=== PATIENT | male | born 1985 | race Caucasian/White ===

== ENCOUNTER 2020-07-26 05:14 | Observation (INO) ==
[2020-07-26] MEDS ORDERED: DECADRON INJ ONE ×2 (05:15→10:34)
[2020-07-26] MEDS ORDERED: DIPRIVAN VIAL ONE (05:15)
[2020-07-26] MEDS ORDERED: TORADOL 30 MG VIAL ONE ×4 (05:15→16:32)
[2020-07-26] MEDS ORDERED: ZOFRAN INJ 4 MG VIAL ONE ×2 (05:15→05:59)
[2020-07-26] MEDS ORDERED: XYLOCAINE 1 % (PLAIN) ONE (05:15)
[2020-07-26] MEDS ORDERED: ULTANE GAS IN ONE (05:15)
[2020-07-26] MEDS ORDERED: VERSED ONE (05:15)
[2020-07-26 05:36] VITALS: BMI 27.1
[2020-07-26] MEDS ORDERED: PEPCID 20 MG IV PREMIX* 20 MG/50 ML BAG IV ONE ×2 (05:44→05:59)
[2020-07-26] MEDS ORDERED: PROTONIX INJ 40 MG VIAL IVP ONE (05:44)
[2020-07-26] MEDS ORDERED: NS 1000 ML 1,000 ML ONE ×2 (05:46→08:14)
[2020-07-26] MEDS ORDERED: NS 1000 ML 1,000 ML IV ONE (05:46)
[2020-07-26] MEDS ORDERED: ZOFRAN INJ 4 MG VIAL IVP ONE (05:47)
--- NOTE | 2020-07-26 05:50 | DR.CP ---
HPI Time Seen Time Seen by Provider: 07/26/20 05:37 PCP Primary Care Physician: Manoj HPI Comment HPI Comment: PATIENT IS 35YR OLD MALE IN ER WITH SEVERE CHEST PAIN, SHARP, 10/10 RADIATING TO THE BACK. WAS IN ER FEW DAYS AGO WITH SIMILAR SYMPTOMS. HAVE GOTTEN WORSE. MEDICATION AT HOME IS NOT HELPING. NO FEVER. DENIES DIARRHEA OR DYSURIA. Complaint Chief Complaint Doctor Comments: CHEST PAIN, MID STERNAL RADIATING TO THE BACK. Chief Complaint:: "I came in with CP a few days ago and got diagnosed with gallstones. The pain has just got worse." COVID-19 Coronavirus risk:travel/contact w/high risk person: No Has patient experienced Coronavirus symptoms: No Reviewed Nurses Notes Review: Yes Source History Provided: Patient and Family Member Mode of Arrival Mode of Arrival: Ambulatory Timing Onset of Chief Complaint: 07/16/20 Came on: Suddenly Duration Duration: Constant Duration: Days Location Location of Chest Pain: Chest (MID CHEST PAIN.) Chest Pain Radiation Location: Back Context Onset: At rest Cardiac Risk Factors: HTN PE Risk Factors: None History of: None Prehospital Care: None Quality Quality: Sharp Severity Severity: Moderate Modifying Factors Worsens: Exertion Impoves: Rest Associated Signs and Symptoms Associated Signs and Symptoms: Diaphoresis and Abdominal Pain PMH PMH Past Medical History: Yes Past Medical History: Hypertension and Kidney Stones Past Medical History Comment: ulcers Past Surgical History: Yes Surgical History: Lithotripsy Past Surgical History Comment: endoscopy, lithotripsy x3 Family History History of Family Medical Conditions: Yes Family Medical History: Hypertension Social History Type of Tobacco Use: Cigarettes Do you use any recreational Drugs:: No Infectious screening Have you traveled outside the country in the last 6 months?: No Isolation: Standard ROS Review of Systems Constitutional: No Symptoms Reported and See HPI; negative Fever, Weakness and Fatigue Eyes: No Symptoms Reported and See HPI ENTM: No Symptoms Reported and See HPI; negative Nose Discharge and Nose Congestion Respiratoy: No Symptoms Reported and See HPI; negative Moist Cough, Short of Breath and Wheezing Cardiovascular: No Symptoms Reported, See HPI and Chest Pain; negative Edema Gastrointestinal/Abdominal: No Symptoms Reported, See HPI and Abdominal Pain; negative Constipation and Diarrhea Genitourinary: No Symptoms Reported and See HPI; negative Dysuria, Frequency and Hematuria Neurological: No Symptoms Reported and See HPI; negative Weakness and Dizziness Musculoskeletal: No Symptoms Reported and See HPI; negative Back Pain Integumentary: No Symptoms Reported and See HPI; negative Change in Color, Rash and Juandice Hematologic/Lymphatic: No Symptoms Reported and See HPI; negative Easy Bruising and Swollen Glands Endocrine: No Symptoms Reported and See HPI; negative Increased Thirst and Increased Urine Psychiatric: No Symptoms Reported and See HPI All Other Systems: Reviewed and Negative PE Vitals Vitals: Temperature 97.8 F Pulse Rate 57 Respiratory Rate 17 Blood Pressure [Right Arm] 131/70 Blood Pressure 128/66 O2 Sat by Pulse Oximetry 97 General Limitations: No Limitations General Appearance: Alert and In No Apparent Distress Head Head Exam: Normal Inspection Eyes Eye exam: Normal Appearance and PERRL; negative Scleral Icterus and Conjunctival Injection ENT ENT Exam: Normal Exam, Normal Oropharynx, Normal External Ear Exam and TM's Normal Bilaterally Chest Chest Inspection: Normal Inspection and Symmetric Chest Wall Rise; negative Tenderness Respiratory Respiratory Exam: Normal Lung Sounds Bilat; negative Accessory Muscle Use, Chest Wall Tenderness and Respiratory Distress Respiratory Exam: Bilateral: Clear to Auscultation Cardiovascular Cardiovascular Exam: Regular Rate, Normal Rhythm and Normal Heart Sounds; neg ative Systolic Murmur and Diastolic Murmur Pulse: Normal Edema: Normal Abdominal Exam Abdominal Exam: Normal Inspection, Normal Bowel Sounds and Soft; negative Tenderness Extremities Extremities Exam: Normal Inspection and Normal Capillary Refill; negative Tenderness and Edema Back Back Exam: Normal Inspection; negative (R) CVA Tenderness and (L) CVA Tenderness Neurologic Neurological Exam: Alert, Oriented X3 and CN II-XII Intact; negative Motor Sensory Deficit Psychiatric Psychiatric Exam: Normal Affect and Normal Mood Skin Skin Exam: Warm, Dry, Intact and Normal Color MDM Additional Information Additional Information Obtained From: Old Records and Family Differential Diagnosis Differential Diagnosis: Angina, Chest Wall Pain, Cholelithasis, CHF, Costochondritis, Esophageal Reflux/Spasm, Gastritis, Myocardial Infarction, Pericarditis, Pleuritis, Pancreatitis, Pneumonia and Pneumothorax COURSE Treatment Treatment: SEE ORDERS. Consultation Consultation Comments: CONSULT DR. FROST FOR POSSIBLE SURGERY. Education/Counseling Education/Counseling: Patient and Family Educated On: Diagnosis ROR Labs Reviewed Laboratory Results Reviewed?: Yes Result Diagrams: 07/26/20 06:05 07/26/20 06:05 Laboratory: WBC 8.9 X10^3/uL (3.6-10.0) 07/26/20 06:05 RBC 4.46 X10^6/uL (4.7-6.0) L 07/26/20 06:05 Hgb 13.9 g/dL (13.5-18.0) 07/26/20 06:05 Hct 39.5 % (42.0-54.0) L 07/26/20 06:05 MCV 88.6 fL (80.0-100.0) 07/26/20 06:05 MCH 31.1 pg (27.0-34.0) 07/26/20 06:05 MCHC 35.1 g/dL (33.0-35.0) H 07/26/20 06:05 RDW 12.4 % (11.6-16.5) 07/26/20 06:05 Plt Count 163 X10^3/uL (150.0-450.0) 07/26/20 06:05 MPV 8.3 fL (7.4-11.0) 07/26/20 06:05 Neut % (Auto) 66.9 % (42.0-75.0) 07/26/20 06:05 Lymph % (Auto) 21.7 % (21.0-51.0) 07/26/20 06:05 Ness % (Auto) 6.6 % (0.0-13.0) 07/26/20 06:05 Eos % (Auto) 3.9 % (0.9-2.9) H 07/26/20 06:05 Baso % (Auto) 0.9 % (0.2-1.0) 07/26/20 06:05 Neut # (Auto) 5.9 x10^3/uL (2.2-4.8) H 07/26/20 06:05 Lymph # (Auto) 1.9 X10^3/uL (1.3-2.9) 07/26/20 06:05 Ness # (Auto) 0.6 x10^3/uL (0.3-0.8) 07/26/20 06:05 Eos # (Auto) 0.3 x10^3/uL (0.0-0.2) H 07/26/20 06:05 Baso # (Auto) 0.1 X10^3/uL (0.0-0.1) 07/26/20 06:05 Absolute Nucleated RBC 0.0 /100WBC 07/26/20 06:05 Sodium 141 mmol/L (136-145) 07/26/20 06:05 Corrected Sodium TNP 07/26/20 06:05 Potassium 4.0 mmol/L (3.5-5.1) 07/26/20 06:05 Chloride 105 mmol/L (98-107) 07/26/20 06:05 Carbon Dioxide 27.2 mmol/L (21-32) 07/26/20 06:05 BUN 20 mg/dL (7-18) H 07/26/20 06:05 Creatinine 1.06 mg/dL (0.70-1.30) 07/26/20 06:05 Est GFR (MDRD) Af Amer > 60 (>60) 07/26/20 06:05 Est GFR (MDRD) Non-Af > 60 (>60) 07/26/20 06:05 Glucose 102 mg/dL (65-99) H 07/26/20 06:05 Calcium 8.7 mg/dL (8.5-10.1) 07/26/20 06:05 Corrected Calcium TNP 07/26/20 06:05 Total Bilirubin 0.30 mg/dL (0.2-1.0) 07/26/20 06:05 AST 13 Units/L (15-37) L 07/26/20 06:05 ALT 18 Units/L (12-78) 07/26/20 06:05 Alkaline Phosphatase 66 Units/L (46-116) 07/26/20 06:05 Creatine Kinase 63 Units/L (39-308) 07/26/20 06:05 CK-MB (CK-2) < 1.0 ng/mL (0-4.0) 07/26/20 06:05 CK/CKMB % Calc 1.6 % (<4) 07/26/20 06:05 Troponin I < 0.02 ng/mL (0-1.5) 07/26/20 06:05 Total Protein 6.6 g/dL (6.4-8.2) 07/26/20 06:05 Albumin 3.6 g/dL (3.4-5.0) 07/26/20 06:05 Globulin 3.0 g/dL (2.5-4.5) 07/26/20 06:05 Albumin/Globulin Ratio 1.2 Ratio (1.1-2.1) 07/26/20 06:05 Amylase 42 Units/L (25-115) 07/26/20 06:05 Lipase 108 Units/L (73-393) 07/26/20 06:05 Specimen Type Clean catch urine 07/26/20 06:46 Urine Color Yellow (YELLOW) 07/26/20 06:46 Urine Appearance Clear (CLEAR) 07/26/20 06:46 Urine pH 6.0 (5.0 - 8.0) 07/26/20 06:46 Ur Specific [place] 1.025 (1.000-1.030) 07/26/20 06:46 Urine Protein Negative (NEGATIVE) 07/26/20 06:46 Urine Glucose (UA) Negative (NEGATIVE) 07/26/20 06:46 Urine Ketones Negative (NEGATIVE) 07/26/20 06:46 Urine Occult Blood 1+ (NEGATIVE) 07/26/20 06:46 Urine Nitrite Negative (NEGATIVE) 07/26/20 06:46 Urine Bilirubin Negative (NEGATIVE) 07/26/20 06:46 Urine Urobilinogen Normal (NORMAL) 07/26/20 06:46 Ur Leukocyte Esterase Negative (NEGATIVE) 07/26/20 06:46 Urine RBC 3-5 /HPF (0-3) A 07/26/20 06:46 Urine WBC 0-2 /HPF (0-5) 07/26/20 06:46 Ur Squamous Epith Cells Rare /HPF (NEGATIVE) 07/26/20 06:46 Urine Bacteria Negative /HPF (NEGATIVE) 07/26/20 06:46 Urine Mucus Few /HPF (NEGATIVE) 07/26/20 06:46 Ur Culture Indicated? No/not indicated 07/26/20 06:46 SARS CoV-2 RNA Rapid MAREK Negative (NEGATIVE) 07/26/20 08:14 Opioid Opioid Risk Tool Age (Ayo box if 16-45): Yes History of Preadolescent Sexual Abuse: No Total: 1 Total Score Risk Category: Low Risk Copyright: Rico ROBERSON predicting aberrant behaviors Diagnosis Discharge Problem: Gall stone Qualifiers: Cholecystitis presence: without cholecystitis Biliary obstruction: without biliary obstruction Qualified Code(s): K80.20 - Calculus of gallbladder without cholecystitis without obstruction Abdominal pain Qualifiers: Abdominal location: upper abdomen, unspecified Qualified Code(s): R10.10 - Upper abdominal pain, unspecified Instructions Forms: Precautions for COVID19 Patient Portal Social Distancing
[2020-07-26] MEDS ORDERED: PROTONIX INJ 40 MG VIAL ONE (05:59)
[2020-07-26] MEDS ORDERED: DEMEROL INJ ONE (05:59)
[2020-07-26 06:13] LABS: BASOPHILS # (AUTO) 0.1 X10^3/uL (0.0-0.1); BASOPHILS % (AUTO) 0.9 % (0.2-1.0); EOSINOPHILS # (AUTO) 0.3 x10^3/uL (0.0-0.2); EOSINOPHILS % (AUTO) 3.9 % (0.9-2.9); HEMATOCRIT 39.5 % (42.0-54.0); HEMOGLOBIN 13.9 g/dL (13.5-18.0); LYMPHOCYTES # (AUTO) 1.9 X10^3/uL (1.3-2.9); LYMPHOCYTES % (AUTO) 21.7 % (21.0-51.0); MEAN CORPUSCULAR HEMOGLOBIN 31.1 pg (27.0-34.0); MEAN CORPUSCULAR HGB CONC 35.1 g/dL (33.0-35.0); MEAN CORPUSCULAR VOLUME 88.6 fL (80.0-100.0); MEAN PLATELET VOLUME 8.3 fL (7.4-11.0); MONOCYTES # (AUTO) 0.6 x10^3/uL (0.3-0.8); MONOCYTES % (AUTO) 6.6 % (0.0-13.0); NEUTROPHILS # (AUTO) 5.9 x10^3/uL (2.2-4.8); NEUTROPHILS % (AUTO) 66.9 % (42.0-75.0); PLATELET COUNT 163 X10^3/uL (150.0-450.0); RED BLOOD COUNT 4.46 X10^6/uL (4.7-6.0); RED CELL DISTRIBUTION WIDTH 12.4 % (11.6-16.5); WHITE BLOOD COUNT 8.9 X10^3/uL (3.6-10.0)
[2020-07-26] MEDS: DEMEROL INJ IVP ONE ×2 (06:13→06:15)
[2020-07-26 06:35] LABS: ALANINE AMINOTRANSFERASE 18 Units/L (12-78); ALBUMIN 3.6 g/dL (3.4-5.0); ALKALINE PHOSPHATASE 66 Units/L (46-116); AMYLASE 42 Units/L (25-115); ASPARTATE AMINO TRANSFERASE 13 Units/L (15-37); BLOOD UREA NITROGEN 20 mg/dL (7-18); CALCIUM 8.7 mg/dL (8.5-10.1); CARBON DIOXIDE 27.2 mmol/L (21-32); CHLORIDE 105 mmol/L (98-107); CREATININE 1.06 mg/dL (0.70-1.30); LIPASE 108 Units/L (73-393); SODIUM 141 mmol/L (136-145); TOTAL PROTEIN 6.6 g/dL (6.4-8.2); eGFR NON BLACK RACES > 60 (>60)
[2020-07-26 06:55] LABS: BILIRUBIN,URINE NEGATIVE (NEGATIVE); BLOOD/HEMOGLOBIN,URINE 1+ (NEGATIVE); GLUCOSE, URINE NEGATIVE (NEGATIVE); KETONES,URINE NEGATIVE (NEGATIVE); LEUKOCYTE ESTERASE ,URINE NEGATIVE (NEGATIVE); NITRITES,URINE NEGATIVE (NEGATIVE); PROTEIN,URINE NEGATIVE (NEGATIVE); UROBILINOGEN,URINE NORMAL (NORMAL)
[2020-07-26 07:03] LABS: APPEARANCE,URINE CLEAR (CLEAR); COLOR,URINE YELLOW (YELLOW)
[2020-07-26 07:04] LABS: BACTERIA,URINE NEGATIVE /HPF (NEGATIVE); MUCUS,URINE FEW /HPF (NEGATIVE); SQUAMOUS EPITHELIAL CELL,UR RARE /HPF (NEGATIVE)
[2020-07-26] MEDS ORDERED: TORADOL 30 MG VIAL IVP ONE (07:49)
[2020-07-26] MEDS ORDERED: DILAUDID INJ IVP PRN (08:06)
[2020-07-26] MEDS ORDERED: DILAUDID INJ ONE (08:14)
[2020-07-26] MEDS ORDERED: LEVAQUIN PREMIX IV 500 MG 500 MG/100 ML BAG IV ONE (08:14)
[2020-07-26] MEDS: LEVAQUIN PREMIX IV 500 MG 500 MG/100 ML BAG IV SCH (08:21)
[2020-07-26 08:34] LABS: CKMB % 1.6 % (<4); CREATINE KINASE 63 Units/L (39-308); CREATINE KINASE MB < 1.0 ng/mL (0-4.0); TROPONIN I < 0.02 ng/mL (0-1.5)
[2020-07-26] MEDS ORDERED: NS 1000 ML 1,000 ML IV SCH (09:00)
--- NOTE | 2020-07-26 09:37 | RAD ---
HISTORYCHEST PAIN, GALLSTONES, PRE OP CLEARANCE GBSTUDYCHEST, 1 VIEWCOMPARISONPortable chest July 24, 2020FINDINGSThe trachea is midline. The cardiac silhouette is unremarkable . The lungs are clear without focal infiltrate or effusion. The bony thorax is unremarkable.IMPRESSIONNo acute cardiopulmonary disease and no change from prior study July 24, 2020.Electronically signed by: RYDER REA (July 26, 2020 09:35:19)
[2020-07-26] MEDS ORDERED: BRIDION ONE (10:34)
[2020-07-26] MEDS ORDERED: ZEMURON 50 MG VIAL ONE (10:35)
[2020-07-26] MEDS ORDERED: OFIRMEV IV 1000 MG VIAL 1,000 MG/100 ML VIAL IV ONE (10:35)
[2020-07-26] MEDS ORDERED: FENTANYL INJ 100 mcg ONE (10:35)
[2020-07-26] MEDS ORDERED: BACTROBAN TOPICAL OINT ONE (15:24)
[2020-07-26] MEDS ORDERED: BARHEMSYS INJ IVP PRN (15:57)
[2020-07-26] MEDS ORDERED: REGLAN INJ 10 MG VIAL IVP PRN (15:57)
[2020-07-26] MEDS ORDERED: ZOFRAN INJ 4 MG VIAL IVP PRN (15:57)
[2020-07-26] MEDS ORDERED: PHENERGAN INJ 25 MG IM PRN (15:57)
[2020-07-26] MEDS ORDERED: BENADRYL INJ 50 MG VIAL IVP PRN (15:57)
[2020-07-26] MEDS: DILAUDID INJ IVP PRN ×6 (16:00→21:55)
[2020-07-26] MEDS: D5 1/2 NS 1000 ML 1,000 ML IV SCH (16:59)
[2020-07-26 17:07] LABS: BASOPHILS % (AUTO) 0.3 % (0.2-1.0); EOSINOPHILS # (AUTO) 0.1 x10^3/uL (0.0-0.2); EOSINOPHILS % (AUTO) 0.8 % (0.9-2.9); HEMATOCRIT 39.8 % (42.0-54.0); HEMOGLOBIN 13.7 g/dL (13.5-18.0); LYMPHOCYTES # (AUTO) 1.1 X10^3/uL (1.3-2.9); LYMPHOCYTES % (AUTO) 7.7 % (21.0-51.0); MEAN CORPUSCULAR HEMOGLOBIN 31.1 pg (27.0-34.0); MEAN CORPUSCULAR HGB CONC 34.4 g/dL (33.0-35.0); MEAN CORPUSCULAR VOLUME 90.4 fL (80.0-100.0); MEAN PLATELET VOLUME 8.4 fL (7.4-11.0); MONOCYTES # (AUTO) 0.3 x10^3/uL (0.3-0.8); MONOCYTES % (AUTO) 2.2 % (0.0-13.0); NEUTROPHILS # (AUTO) 12.4 x10^3/uL (2.2-4.8); PLATELET COUNT 153 X10^3/uL (150.0-450.0); RED CELL DISTRIBUTION WIDTH 12.2 % (11.6-16.5); WHITE BLOOD COUNT 13.9 X10^3/uL (3.6-10.0)
[2020-07-26 17:25] LABS: ALANINE AMINOTRANSFERASE 46 Units/L (12-78); ALBUMIN 3.4 g/dL (3.4-5.0); ALKALINE PHOSPHATASE 70 Units/L (46-116); ASPARTATE AMINO TRANSFERASE 33 Units/L (15-37); BLOOD UREA NITROGEN 15 mg/dL (7-18); CALCIUM 8.2 mg/dL (8.5-10.1); CARBON DIOXIDE 28.5 mmol/L (21-32); CHLORIDE 106 mmol/L (98-107); CREATININE 1.02 mg/dL (0.70-1.30); SODIUM 141 mmol/L (136-145); TOTAL PROTEIN 6.3 g/dL (6.4-8.2); eGFR NON BLACK RACES > 60 (>60)
[2020-07-27] MEDS: DILAUDID INJ IVP PRN ×3 (01:49→10:59)
[2020-07-27] MEDS: D5 1/2 NS 1000 ML 1,000 ML IV SCH ×2 (01:53→07:16)
[2020-07-27 08:03] LABS: ALANINE AMINOTRANSFERASE 65 Units/L (12-78); ALBUMIN 3.2 g/dL (3.4-5.0); ALKALINE PHOSPHATASE 71 Units/L (46-116); ASPARTATE AMINO TRANSFERASE 29 Units/L (15-37); BLOOD UREA NITROGEN 10 mg/dL (7-18); CALCIUM 8.4 mg/dL (8.5-10.1); CARBON DIOXIDE 27.8 mmol/L (21-32); CHLORIDE 106 mmol/L (98-107); COR NA(FOR HYPERGLY) 140 mmol/L (136-145); CREATININE 0.98 mg/dL (0.70-1.30); SODIUM 140 mmol/L (136-145); eGFR NON BLACK RACES > 60 (>60)
[2020-07-27 08:05] VITALS: BP 120/72
[2020-07-27] MEDS: LEVAQUIN PREMIX IV 500 MG 500 MG/100 ML BAG IV SCH (08:41)
== END 2020-07-27 11:55 | disposition home or self-care (01) ==
LOC: MED/SURG 05:15 → ER 05:15 → MED/SURG 14:30
PROVIDERS: ADMIT Surgery; ATTEND Surgery
DX: K82.1 Hydrops of gallbladder; Z20.822 Contact with and (suspected) exposure to COVID-19; R10.10 Upper abdominal pain, unspecified; K80.01 Calculus of gallbladder with acute cholecystitis with obstruction; R10.9 Unspecified abdominal pain; R07.89 Other chest pain; I10 Essential (primary) hypertension